=== PATIENT | female | born 1995 | race Caucasian/White ===

== ENCOUNTER 2017-10-08 12:23 | Emergency (ER) | payer BC, MEDICAID ==
[~2017-10-08] VITALS: Ht 162.6 cm; Wt 103.0 kg
[2017-10-08] MEDS ORDERED: KETOROLAC 30MG/ML VIAL IV ONE (15:00)
[2017-10-08 15:19] LABS: CLARITY URINE CLEAR (CLEAR); COLOR URINE YELLOW (YELLOW); KETONES URINE TRACE (NEGATIVE); LEUKOCYTE ESTERASE URINE 1+ (NEGATIVE); NITRITE URINE NEGATIVE (NEGATIVE); OCCULT BLOOD URINE NEGATIVE (NEGATIVE); PROTEIN URINE NEGATIVE (NEGATIVE); SPECIFIC GRAVITY URINE 1.036 (1.005-1.030)
[2017-10-08 15:20] LABS: CHLORIDE 105 mEq/L (98-107)
[2017-10-08 15:21] LABS: PROTHROMBIN TIME 10.7 sec (9.4-11.6)
[2017-10-08 15:22] LABS: UCG SCREEN NEGATIVE
[2017-10-08 15:26] LABS: CARBON DIOXIDE 26 mEq/L (21-32)
[2017-10-08 15:28] LABS: BASOPHILS % 0.4 % (0.0-2.0); EOSINOPHILS % 1.8 % (0.0-5.0); HEMATOCRIT. 39.5 % (36.0-48.0); HEMOGLOBIN. 13.2 g/dL (12.0-16.0); LYMPHOCYTES % 28.7 % (20.0-50.0); MEAN CORPUSCULAR HEMOGLOBIN 27.3 pg (28.0-32.0); MEAN CORPUSCULAR VOLUME 81.7 fL (81.0-99.0); MEAN PLATELET VOLUME 7.7 fl (7.4-10.4); MONOCYTES % 8.8 % (2.0-8.0); NEUTROPHILS % 60.3 % (40.0-76.0); PLATELET 348 x1000/uL (130-400); RED BLOOD CELL COUNT 4.84 mill/uL (4.2-5.4); RED CELL DISTRIBUTION WIDTH 13.2 % (11.6-14.6)
[2017-10-08] MEDS ORDERED: IBUPROFEN 600MG TABLET PO ONE (15:30)
[2017-10-08 17:10] VITALS: BP 124/62
== END 2017-10-08 17:37 | disposition home or self-care (01) ==
LOC: ER 13:55
DX: N30.90 Cystitis, unspecified without hematuria (principal); B34.9 Viral infection, unspecified; R19.7 Diarrhea, unspecified; R51 Headache
CPT/HCPCS: 36415; 80053; 81001; 81025; 83690; 85025; 85610; 87804; 99284; Z7610